=== PATIENT | male | born 1995 ===

== ENCOUNTER 2021-10-27 21:51 | Emergency (ER) | payer BC, SELFPAY ==
[2021-10-27 22:06] VITALS: BP 128/83; PULSE 76; RESP 16; TEMP 36.7; O2SAT 99
--- NOTE | 2021-10-27 22:17 | ED.GENADUL_ITS ---
Discharge Plan Disposition Patient Disposition: HOME Condition: Stable Discharge Details Clinical Impression: Acute bacterial conjunctivitis of both eyes Primary Care Provider: Unknown,Unknown ED Provider: Jennifer Talbert Home Meds and New Rx's Prescriptions: No Action Claritin 10 mg Tablet,Chewable 10 mg PO PRN PRN Discharge Instructions Instructions: Conjunctivitis (ED) Additional Instructions: At this time it appears you have bilateral pinkeye. This is highly contagious. Use the antibiotic every 3 hours while awake for the next 7 days. Dab at eyes with a warm washcloth. Wash hands, change pillowcases and do not share towels. Follow up with primary care provider in 3-5 days. Return to ED sooner if any worsening or concerns. Increase oral fluids. Please take Tylenol or Ibuprofen with food every 4-6 hours as needed for pain and swelling. Medical Decision Making 26-year-old male presents to the ER with chief complaint of bilateral eye irritation and drainage and tenderness which began yesterday after swimming in [place] recently with contact them. He removed his contacts last night woke up this morning with yellow drainage and yellow crusty. He does have bilateral injected conjunctive a, yellow discharge noted bilaterally. He does have some mild swelling to periorbital area. EOMs are intact. Denies any fever sore throat or any other associated symptoms. Visual Acuity OD 20/50 OS 20/30 OU 20/25 Patient given polymyxin eyedrops instructed to follow-up. Started on home care verbalized understanding. This text was generated using [employer] dictation system, please disregard any oddities of phrase or misspellings. HPI General Mode of arrival: ambulatory . Date/Time Provider Initiated Documentation: 10/27/21 22:10 . Limitations to Documentation: no limitations . Information obtained by: patient, RN notes reviewed and old records reviewed . HPI Narrative: 26-year-old male presents to the ER with chief complaint of bilateral eye irritation and drainage and tenderness which began yesterday after swimming [place] recently with contact them. He removed his contacts last night woke up this morning with yellow drainage and yellow crusty. He does have bilateral injected conjunctive a, yellow discharge noted bilaterally. He does have some mild swelling to periorbital area. EOMs are intact. Denies any fever sore throat or any other associated symptoms. Related Data Home Medications Medication Instructions Recorded Confirmed loratadine 10 mg chewable tablet 10 mg PO PRN PRN 10/27/21 10/27/21 (Claritin) Allergies Allergy/AdvReac Type Severity Reaction Status Date / Time pollen extracts Allergy Unverified 10/27/21 22:10 General Stated Complaint: EyeProblem CHRISTIANO: 4 Review of Systems All systems reviewed & are unremarkable except as noted in HPI and below Eyes Eyes: Reports as per HPI, Reports eye discharge, Reports irritation and Reports photophobia ENT Ears, Nose, Mouth, and Throat: Reports system reviewed and no additional comp laints, except as documented Respiratory Respiratory: Reports system reviewed and no additional complaints, except as documented PFSH All Active Problems (Updated 10/27/21 @ 22:29 by Jennifer Talbert) Acute bacterial conjunctivitis of both eyes (Acute) Social History Smoking/Tobacco Use Status: Never Smoking risk assessment performed?: Yes Alcohol Intake: current Alcohol Intake frequency: 0-2 drinks per day Substance use type: does not use Do you feel safe at home: Yes Do you feel safe in your relationship?: Yes Exam HENOK Head: normal to inspection General nose exam: external nose normal Face and sinus: normal facial exam Mouth: oral mucosae normal Eyes Alignment and Position: alignment normal Eyelids: eyelid abnormality Conjunctivae: conjunctival abnormality bilaterally conjunctival injection diffuse and discharge purulent Pupils: PERRL EOM: EOM intact bilaterally Direct ophthalmoscopy: normal light reflex Course Vital Signs Vital signs: Vital Signs Temperature 36.7 C 10/27/21 22:06 Pulse 76 10/27/21 22:06 Respiratory Rate 16 10/27/21 22:06 Blood Pressure 128/83 10/27/21 22:06 Pulse Oximetry 99 10/27/21 22:06 Temperature 36.7 C 10/27/21 22:06 Temperature Source Temporal Artery Scan 10/27/21 22:06 Pulse 76 10/27/21 22:06 Respiratory Rate 16 10/27/21 22:06 Blood Pressure 128/83 10/27/21 22:06 Blood Pressure Position Sitting 10/27/21 22:06 Pulse Oximetry 99 10/27/21 22:06 Oxygen Delivery Method Room Air 10/27/21 22:06 Oxygen Flow Rate 0 10/27/21 22:06 Pain Level 2 10/27/21 22:06
[2021-10-27] MEDS: Polymyxin B/Trimethoprim Ophth Soln 10 ML BTL OU (23:08)
== END 2021-10-27 23:06 | disposition home or self-care (01) ==
PROVIDERS: Emergency Provider Registered Nurse Emergency
DX: H10.33 Unspecified acute conjunctivitis, bilateral (principal)
CPT/HCPCS: 99283